=== PATIENT | female | born 1940 | race African-American/Black ===

== ENCOUNTER 2019-02-24 06:52 | Emergency (ER) | payer MEDICARE, OTHER ==
[~2019-02-24] VITALS: Ht 152.4 cm; Wt 73.5 kg
[~2019-02-24 06:52] MED LIST: AMLO2.5T2 PO; ATOR40TA59 PO; BUPR150T11 PO; DONE5TAB14 PO; FENO54TA PO; LISI-334 PO; METF500T16 PO; METO5TAB PO; PANT40TA77 PO
[2019-02-24 06:54] VITALS: BP 142/69
[2019-02-24] MEDS ORDERED: TRIA15OI9 TP (07:07)
--- NOTE | 2019-02-24 07:07 | PHYS DOC ---
Past Medical History Past Medical History: Dementia, Diabetes-Type II, High Cholesterol, Hyper tension Past Surgical History: No Surgical History Additional Information: Nonsmoker Alcohol Use: None Drug Use: None Adult General Chief Complaint Chief Complaint: Rash HPI HPI Patient is a 78 year old female who presents with burning and pruritic dry skin. Pt reports it started yesterday on her neck and chest. She rates her discomfort as 5/10. Denies any vesicular rashes or fluid drainage. Denies any oral ulcers or SOB. She has no other constituitional symptoms. Pt received her shingle shot 2 yrs ago. Review of Systems Review of Systems Constitutional: Denies fever or chills Eyes: Denies redness or eye pain HENT: Denies nasal congestion or sore throat Respiratory: Denies cough or shortness of breath Cardiovascular: Denies chest pain or palpitations GI: Denies abdominal pain, nausea, or vomiting : Denies dysuria or hematuria Musculoskeletal: Denies back pain or joint pain Integument: Positve rash and pruritus Neurologic: Denies headache, focal weakness or sensory changes Complete systems were reviewed and found to be within normal limits, except as documented in this note. Allergies Allergies Allergies Coded Allergies Type Severity Reaction Last Updated Verified lisinopril Allergy Severe Swelling 06/19/15 Yes Physical Exam Physical Exam Constitutional: Well developed, well nourished, no acute distress, non-toxic appearance HENT: Normocephalic, atraumatic, oropharynx moist Eyes: Conjunctiva normal, no discharge Neck: Normal range of motion, no tenderness, supple Cardiovascular: Heart rate normal, regular rhythm Lungs & Thorax: Bilateral breath sounds clear to auscultation, no wheezing Skin: Warm, dry, cracked, dry patches on the neck and anterior chest. no surrounding swelling or erythema noted Back: No tenderness, no CVA tenderness Extremities: No tenderness, ROM intact, no edema Neurologic: Alert and oriented X 3, no focal deficits noted Psychologic: Affect normal, judgement normal Current Patient Data Vital Signs Vital Signs Date Time Temp Pulse Resp B/P (MAP) Pulse Ox O2 Delivery O2 Flow Rate FiO2 02/24/19 06:54 98.1 94 18 142/69 (93) 98 Room Air 98.1 EKG EKG [] Radiology/Procedures Radiology/Procedures [] Course & Med Decision Making Course & Med Decision Making Patient is a 78 year old female who presents with pruritic dry skin. Most likely eczema, doubt shingle with HPI and PE. Will provide prescription for topical steroid cream and follow up referral for dermatology. Patient stable for discharge with outpatient follow-up with PCP/dermatology. Dermatology referral provided. Discussed findings and plan with patient and tamiko isidro, who acknowledge understanding and agreement. Dragon Disclaimer Dragon Disclaimer This electronic medical record was generated, in whole or in part, using a voice recognition dictation system. Departure Departure Impression: Primary Impression: Eczema Disposition: HOME, SELF-CARE Condition: STABLE Referrals: UNKNOWN PCP NAME (PCP) ELIECER HOGAN MD Patient Instructions: Eczema Scripts Triamcinolone Acetonide (TRIAMCINOLONE ACETONIDE 0.5% OINT) 15 Gm Oint...g. 1 IGNACIO TP PRN TID PRN for rash, #30 GM 0 Refills apply to affected area(s) Prov: HAYDEN QUINONEZ DO 02/24/19 Problem Qualifiers Primary Impression: Eczema Eczema type: unspecified Qualified Codes: L30.9 - Dermatitis, unspecified HAYDEN QUINONEZ DO Feb 24, 2019 07:07
== END 2019-02-24 07:18 | disposition home or self-care (01) ==
LOC: ER 06:52
DX: L30.9 Dermatitis, unspecified (principal); F03.90 Unspecified dementia, unspecified severity, without behavioral disturbance, psychotic disturbance, mood disturbance, and anxiety; E11.9 Type 2 diabetes mellitus without complications; E78.00 Pure hypercholesterolemia, unspecified; I10 Essential (primary) hypertension; Z88.8 Allergy status to other drugs, medicaments and biological substances
CPT/HCPCS: 99283

== ENCOUNTER 2020-01-01 08:53 | Emergency (ER) | payer MEDICARE, OTHER ==
[~2020-01-01] VITALS: Ht 170.2 cm; Wt 90.0 kg
[~2020-01-01 08:53] MED LIST changes: +TRIA15OI9 TP
--- NOTE | 2020-01-01 09:29 | ED.ADGEN ---
Past Medical History Past Medical History: Dementia, Diabetes-Type II, GERD, High Cholesterol, Hypertension Past Surgical History: No Surgical History Smoking Status: Former Smoker Alcohol Use: None Drug Use: None General Adult EDM: Chief Complaint: KNEE INJURY HPI: HPI: Patient is an 79-year-old female past medical history of dementia who presents to the emergency room after a possible fall. Patient states that she did not fall and that her knee hurts all the time. According to EMS report the fall was not witnessed. She told the facility that she had a fall but it is unclear whether or not she was found on the ground. She does have right knee pain. She denies any other pain or injuries. Review of Systems: Review of Systems: Complete ROS is negative unless otherwise documented in HPI Allergies: Allergies: Allergies Coded Allergies Type Severity Reaction Last Updated Verified lisinopril Allergy Severe Swelling 06/19/15 Yes Physical Exam: PE: General: Awake, alert, NAD. Well Nourished, well hydrated. Cooperative HEENT: Atraumatic, EOMI, PERRL, airway patent, moist oral mucosa Neck: Supple, trachea midline Respiratory: CTA bilaterally, normal effort, no wheezing/crackles CV: RRR, no murmur, cap refill <2 GI: Soft, nondistended, nontender, no masses MSK: Right knee: Mild swelling with warmth, no deformity, no erythema or induration Skin: Warm, dry, intact Neuro: A&O x1, speech NL, sensory and motor grossly intact, no focal deficits Psych: Normal affect, normal mood, not suicidal or homicidal Current Patient Data: Vital Signs: Vital Signs Date Time Temp Pulse Resp B/P (MAP) Pulse Ox O2 Delivery O2 Flow Rate FiO2 01/01/20 10:28 84 20 138/63 (88) 97 Room Air 01/01/20 09:02 98.2 98.2 EKG: EKG: [] Heart Score: Risk Factors: Risk Factors: DM, Current or recent (<one month) smoker, HTN, HLP, family history of CAD, obesity. Risk Scores: Score 0 - 3: 2.5% MACE over next 6 weeks - Discharge Home Score 4 - 6: 20.3% MACE over next 6 weeks - Admit for Clinical Observation Score 7 - 10: 72.7% MACE over next 6 weeks - Early Invasive Strategies Radiology/Procedures: Radiology/Procedures: [] Course & Med Decision Making: Course & Med Decision Making Pertinent Labs and Imaging studies reviewed. (See chart for details) Patient is an 79-year-old female who presents to the emergency room after a possible fall. At this time history is very limited. Patient has severe dementia and does not remember falling. We will do a CT head given age and unwitnessed fall. X-rays ordered of the knee. Xray shows joint effusion. Patient has mild warmth, but does not have any erythema, fever, or decreased range of motion that would suggest septic joint. Given history of fall this is likely a traumatic effusion. Prior to discharge nursing staff from [place] he did call to give report. They state that they did see the patient fall directly onto her knee. This does explain her traumatic effusion. Patient is stable at this time. Patient's test results and vitals while in the ED were fully reviewed and discussed with the patient. Patient is stable and at this time does not need admission to the hospital. We have discussed strict return precautions and the importance of following up with their Primary Care Physician. Patient stated understanding and was given an opportunity to ask any questions. Patient is in agreement with plan. Traci Disclaimer: Dragdavide Disclaimer: This electronic medical record was generated, in whole or in part, using a voice recognition dictation system. Departure Departure Impression: Primary Impression: Fall Additional Impression: Knee pain Disposition: 01 DC HOME SELF CARE/HOMELESS Condition: STABLE Referrals: JEAN CLAUDE GRAVES MD (PCP) Patient Instructions: Knee Effusion Problem Qualifiers ILAN AGRAWAL MD Jan 01, 2020 09:29
--- NOTE | 2020-01-01 09:45 | RAD ---
KNEE RIGHT 3V History: Reason: fall, CHI / Spl. Instructions: / History: Pain Technique: 3 views right knee. Comparison: None. Findings: Genu varus alignment. Advanced knee degenerative changes. Chondrocalcinosis. Potential calcified intra-articular loose bodies. No fracture. Large knee joint effusion. Vascular calcifications. Impression: 1. No acute osseous abnormality. 2. Large knee joint effusion. 3. Advanced right knee DJD with chondrocalcinosis. Electronically signed by: Rex Burgos DO (01/01/2020 9:41 AM) [facility]
--- NOTE | 2020-01-01 09:51 | RAD ---
CT HEAD WO CONTRAST History: Reason: fall, CHI / Spl. Instructions: / History: . Pain Comparison: None. Technique: Noncontrast CT imaging was performed of the head. Exposure: One or more of the following individualized dose reduction techniques were utilized for this examination: 1. Automated exposure control 2. Adjustment of the mA and/or kV according to patient size 3. Use of iterative reconstruction technique. Findings: No intracranial hemorrhage. No mass effect. No hydrocephalus. Mild brain parenchymal volume loss. Moderate to severe foci of decreased attenuation within the hemispheric white matter, most often due to chronic microvascular ischemia. Imaged orbits are unremarkable. Imaged paranasal sinuses and mastoid air cells are clear. No acute calvarial fracture. TMJ arthropathy. Impression: 1. No acute intracranial abnormality. 2. Sequela chronic microvascular ischemia. Electronically signed by: Rex Burgos DO (01/01/2020 9:48 AM) [facility]
[2020-01-01 10:28] VITALS: BP 138/63
== END 2020-01-01 10:35 | disposition home or self-care (01) ==
LOC: ER 08:53
DX: G89.11 Acute pain due to trauma (principal); M25.561 Pain in right knee; R60.0 Localized edema; F03.90 Unspecified dementia, unspecified severity, without behavioral disturbance, psychotic disturbance, mood disturbance, and anxiety; E11.9 Type 2 diabetes mellitus without complications; K21.9 Gastro-esophageal reflux disease without esophagitis; E78.00 Pure hypercholesterolemia, unspecified; I10 Essential (primary) hypertension; Z87.891 Personal history of nicotine dependence; Z88.6 Allergy status to analgesic agent; W18.39XA Other fall on same level, initial encounter; Y93.89 Activity, other specified; Y92.89 Other specified places as the place of occurrence of the external cause; Y99.8 Other external cause status
CPT/HCPCS: 70450; 73562; 99284